=== PATIENT | male | born 1970 | race Caucasian/White ===

== ENCOUNTER 2018-03-25 01:35 | Day surgery (SDC) | payer MEDICARE, MEDICAID ==
[~2018-03-25] VITALS: Ht 157.5 cm; Wt 79.8 kg
[~2018-03-25 01:35] MED LIST: ALPR-460 PO; AMIT75TA42 PO; ASPI-757 PO; ATOR40TA24 PO; BISA10SU62 RC; FLUO-202 PO; GABA-490 PO; HYDR-3089 PO; HYDR-385 PO; INSU100I35 SQ; INSU100I36 SQ; LANI SQ; LIS10 PO; METF-409 PO; MOM PO; OXYC-865 PO; PIOG45TA18 PO; SIMV-54 PO; SITA1TAB17 PO; SITA50TA7 PO; ZOLP12.546 PO
[2018-03-25] MEDS ORDERED: PROPOFOL EMUL(*) 10MG/ML 20 ML 20 ML ONE (07:51)
[2018-03-25] MEDS ORDERED: LIDOCAINE MPF 1% 5 ML VIAL ONE (07:51)
[2018-03-25] MEDS ORDERED: ONDANSETRON 4 MG/2 ML VIAL ONE (07:51)
[2018-03-25] MEDS ORDERED: DEXAMETHASONE SOD 4 MG/ML VIAL ONE (07:51)
[2018-03-25] MEDS ORDERED: METOCLOPRAMIDE 10 MG/2 ML SDV ONE (07:51)
[2018-03-25] MEDS ORDERED: fentaNYL CITR 100 MCG/2 ML AMP ONE ×2 (07:54→10:49)
[2018-03-25 08:07] VITALS: BP 123/83
[2018-03-25] MEDS ORDERED: LIDO/EPI 1% MDV 1:100,000 20ML INFIL ONE (09:48)
[2018-03-25] MEDS ORDERED: BUPIVACAIN 0.25% INJ 50ML VIAL ONE (09:48)
[2018-03-25] MEDS ORDERED: NEOMYCIN/POLYMYX/BACITR 30 GM TP ONE (10:14)
[2018-03-25] MEDS ORDERED: APAP/HYDROCODONE 325/5 TAB ONE (11:01)
[2018-03-25] MEDS ORDERED: HYDR-385 PO (11:11)
[2018-03-25] MEDS ORDERED: CEPH500T7 PO (11:11)
[2018-03-25 11:24] VITALS: BP 113/69
[2018-03-25 12:00] VITALS: BP 110/81
--- NOTE | 2018-03-25 12:03 | OPERATIVE REPORT 1 ---
EVENT DATE: March 25, 2018 SURGEON: Al Bhagat MD ANESTHESIOLOGIST: Trip Conley MD ANESTHESIA: General. 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 POSTOPERATIVE DIAGNOSIS PROCEDURE PERFORMED 1. Excision of exostosis at medial aspect of left first TMT (75169). 2. Excision of exostosis at dorsal aspect of left second TMT (67676, modifier 59: separate bone than in No. 1). 3. Excision of dorsal ganglion cyst at right TMT joint (19912). 4. Exostosis excision at medial malleolus (77843). 5. Exostosis excision at anterior right tibia (18167, modifier 59: distinct region of leg, separate incision from No. 4). ESTIMATED BLOOD LOSS Minimal. IVF 1000 TOURNIQUET TIME Right 17 minutes, left 16 minutes. SPECIMENS None COMPLICATIONS None. IMPLANTS USED None. SUMMARY OF PROCEDURE The patient was brought into the operating room and placed on the OR table in the supine position. After obtaining adequate general anesthesia, the bilateral lower extremities were prepped and draped in the usual sterile fashion The patient had previously marked the sites that were causing pain. We then planned incisions over these. For the left one, there were two fairly broadly spaced osteophytes that were projecting up away from the TMT joint. I initially was thinking about doing this with a longitudinal incision, but it really appeared to be better suited to transverse incision. We did start with the left side. After adequate prep and drape with exsanguination, the tourniquet was inflated and then we made a transverse incision connecting the two large exostoses. I found a central extensor tendon that was placed on a 1/4 inch Primo drain and retracted out of between the two and then we used cautery to get down to the base on both of them. We used a rongeur to trim down to the base of the joint and then smoothed with a rasp, followed by placement of bone wax. We then moved the tendon in the opposite direction and did the same procedure for the more lateral osteophyte which was excised in a similar fashion and then bone wax was applied. We irrigated as we had prior to placing bone wax and then closed with nylon and the tourniquet was deflated. We then moved to the right foot. I initially planed an incision over the tibial osteophyte which he had indicated on the shaft was causing quite a bit of pain. We made an incision down through this. It was a small bony prominence which was removed with a rongeur and then smoothed with a rasp. Bone wax was again applied after irritation and then irrigation was again done. For the next one more distal, which was quite large at the midfoot, I made an incision over this area, retracted the extensor tendon once again, but interestingly we found that this was actually a large dorsal ganglion. He had had an excision of exostosis here before and there was no recurrent exostosis. The ganglion was sessile. It was excised down to its base and then a rongeur was used to remove all of the tissue around the base, after which I used unipolar cautery to burn the area on top of the joint to minimize the chance that the valve would still be patent. The wound was irrigated and then we moved onto the final exostosis over the medial aspect of the right ankle where there was a prominence projecting adjacent to the posterior tibial tendon. Once again, we exposed with a skin incision followed by a subperiosteal exposure and then use of a rongeur, followed by a rasp with irrigation and then bone wax. All three incisions on the right were irrigated, followed by closure with nylon. The tourniquet was deflated at 17 minutes. He was given a dry, sterile dressing bilaterally and then postop shoes. DAYANARA
[2018-03-25 12:06] VITALS: BP 128/81
[2018-03-25 12:09] VITALS: BP 138/92
[2018-03-25] MEDS ORDERED: FAMOTIDINE 20 MG TAB PO ONE (14:10)
[2018-03-25] MEDS ORDERED: MIDAZOLAM 2 MG/2 ML VIAL IVP PRN (14:10)
[2018-03-25] MEDS ORDERED: ceFAZolin(*) 2GM/D5W 50ML 50 ML IVPB ONE (14:10)
[2018-03-25] MEDS ORDERED: NORMOSOL R SOLN(*) 1000 ML BAG 1,000 ML IV PRN (14:10)
[2018-03-25] MEDS ORDERED: CELECOXIB 200 MG CAP PO ONE (14:10)
[2018-03-25] MEDS ORDERED: LIDOCAINE/SOD BICARB 8.4% SYR ID ONE (14:10)
== END 2018-03-25 11:24 | disposition home or self-care (01) ==
LOC: OR 01:35
PROVIDERS: ATTEND Orthopaedic Surgery Hand Surgery
DX: M89.9 Disorder of bone, unspecified (principal); I25.2 Old myocardial infarction; I10 Essential (primary) hypertension; E11.9 Type 2 diabetes mellitus without complications; Z79.84 Long term (current) use of oral hypoglycemic drugs
CPT/HCPCS: 27635; 28090; 28122; 36416; 82948; A9270; J1100; J2001; J2405; J2704; J2765; J3010; J3490; J0690